=== PATIENT | female | born 1960 | race Caucasian/White ===

== ENCOUNTER 2016-11-13 13:20 | Emergency (ER) | payer BC | END 2016-11-13 13:25 | disposition left against medical advice (07) | LOC: UCCORT 13:20 | DX: T14.8 Other injury of unspecified body region (principal); W46.0XXA Contact with hypodermic needle, initial encounter; Y93.9 Activity, unspecified; Y92.9 Unspecified place or not applicable; Z53.21 Procedure and treatment not carried out due to patient leaving prior to being seen by health care provider ==

== ENCOUNTER 2016-11-13 13:48 | Emergency (ER) | payer BC ==
--- NOTE | 2016-11-13 15:36 | UC ---
- HPI Summary HPI Summary: 56 YEAR OLD FEMALE PRESENTS WITH COMPLAINS OF RIGHT FINGER NEEDLE STICK WHILE GIVING INSULIN TO HER CAT. - History of Current Complaint Stated Complaint: NEEDLE STICK Time Seen by Provider: 11/13/16 15:36 Needlestick: Solid Needle Blood on Needle: No Bleeding at Site: No Treatment COMMISSARY HELPER: Cleaned Wound PMH/Surg Hx/FS Hx/Imm Hx Previously Healthy: Yes - Surgical History Surgical History: Yes Surgery Procedure, Year, and Place: LAPROSCOPY- FOR ENDOMETIOSIS - Social History Alcohol Use: None Substance Use Type: None Smoking Status (MU): Heavy Every Day Tobacco Smoker Type: Cigarettes Amount Used/How Often: 1 pack per day Review of Systems Constitutional: Negative Skin: Other - RIGHT FINGER NEEDLE STICK Eyes: Negative ENT: Negative Respiratory: Negative Cardiovascular: Negative Gastrointestinal: Negative Genitourinary: Negative Motor: Negative Neurovascular: Negative Musculoskeletal: Negative Neurological: Negative Psychological: Negative All Other Systems Reviewed And Are Negative: Yes Physical Exam Triage Information Reviewed: Yes Appearance: Well-Appearing Vital Signs Reviewed: Yes Eye Exam: Normal ENT Exam: Normal Dental Exam: Normal Neck exam: Normal Neck: Positive: 1 Respiratory Exam: Normal Cardiovascular Exam: Normal Abdominal Exam: Normal Musculoskeletal Exam: Normal Neurological Exam: Normal Psychological Exam: Normal Skin: Positive: Other - NEEDLE STICK RIGHT HAND Needlestick Course/Dx - Diagnoses Provider Diagnoses: Needle stick injury of finger of right hand
[2016-11-13] MEDS ORDERED: Tetan/Diph/Pertus SYR(Tdap)* 0.5 ML SYR(BOOSTRIX) use SYR IM ONE (15:44)
[2016-11-13 15:49] VITALS: BP 121/60
== END 2016-11-13 15:58 | disposition home or self-care (01) ==
LOC: UCCORT 13:48
DX: S61.236A Puncture wound without foreign body of right little finger without damage to nail, initial encounter (principal); W46.0XXA Contact with hypodermic needle, initial encounter; Y93.89 Activity, other specified; Y92.9 Unspecified place or not applicable; Z23 Encounter for immunization; F17.210 Nicotine dependence, cigarettes, uncomplicated
CPT/HCPCS: 90471; 90715; 99212; G0463